=== PATIENT | male | born 1990 | race Caucasian/White ===

== ENCOUNTER 2020-11-03 06:49 | Emergency (ER) | payer OTHER ==
[~2020-11-03] VITALS: Ht 180.3 cm; Wt 77.1 kg
[~2020-11-03 06:49] MED LIST: AMOXICILLIN500 M1 PO; BACTRIM DS TAB1 EACH PO; BACTROBAN15 GM TP; KEFLEX500 MG PO; NORCO 5-325 TA1 EACH PO; ULTRAM 50MG TAB50 MG PO
[2020-11-03 07:52] VITALS: BP 108/87
== END 2020-11-03 07:54 | disposition left against medical advice (07) ==
LOC: M.ERS 06:49
DX: H61.22 Impacted cerumen, left ear (principal)

== ENCOUNTER 2021-05-30 08:43 | Emergency (ER) | payer OTHER | END 2021-05-30 08:53 | disposition left against medical advice (07) | LOC: M.ERS 08:43 | DX: T14.8XXA Other injury of unspecified body region, initial encounter (principal); Z53.21 Procedure and treatment not carried out due to patient leaving prior to being seen by health care provider ==